=== PATIENT | female | born 1950 | race Two or more races ===

== ENCOUNTER 2016-11-19 09:57 | Day surgery (SDC) | payer MEDICARE, BC ==
[2016-11-17 15:11] VITALS: BMI 41.9
--- NOTE | 2016-11-19 07:50 | P.GSHP ---
History of Present Illness H&P Date: 11/19/16 CHIEF COMPLAINT: GERD HISTORY OF PRESENT ILLNESS: The patient is a 65-year-old female who presents reports gastroesophageal reflux disease. Upper endoscopy was offered for further evaluation and management. PAST MEDICAL HISTORY: Please see list. PAST SURGICAL HISTORY: Please see list. MEDICATIONS: Please see list. ALLERGIES: Please see list. SOCIAL HISTORY: No illicit drug use FAMILY HISTORY: No reports of Crohn disease or ulcerative colitis. REVIEW OF ORGAN SYSTEMS: CONSTITUTIONAL: No reports of fevers or chills. GI: Denies any blood in stools or constipation. PHYSICAL EXAM: VITAL SIGNS: Stable GENERAL: Well-developed and pleasant in no acute distress. HEENT: No scleral icterus. Extraocular movements grossly intact. Moist buccal mucosa. NECK: Supple without lymphadenopathy. CHEST: Unlabored respirations. Equal bilateral excursions. CARDIOVASCULAR: Regular rate and rhythm. Distal 2+ pulses. ABDOMEN: Soft, nondistended. MUSCULOSKELETAL: No clubbing, cyanosis, or edema. ASSESSMENT: 1. Gastroesophageal reflux disease PLAN: 1. Recommend proceeding with an upper endoscopy Past Medical History Past Medical History: GERD/Reflux, Hypertension, Sleep Apnea/CPAP/BIPAP Additional Past Medical History / Comment(s): hiatal hernia, diarrhea, arthritis knees, History of Any Multi-Drug Resistant Organisms: None Reported Past Surgical History: Bariatric Surgery, Cholecystectomy, Ear Surgery, Hernia Repair, Hysterectomy, Orthopedic Surgery, Tonsillectomy Additional Past Surgical History / Comment(s): ORIF left ankle, hernia x 4, oscar cataracts Past Anesthesia/Blood Transfusion Reactions: Previous Problems w/ Anesthesia Additional Past Anesthesia/Blood Transfusion Reaction / Comment(s): "Bad sore throats" -diff intubation Smoking Status: Never smoker - Past Family History Mother Family Medical History: No Reported History Medications and Allergies Home Medications Medication Instructions Recorded Confirmed Type Atenolol [Tenormin] 50 mg PO HS 11/17/16 11/17/16 History Chlorthalidone 25 mg PO DAILY 11/17/16 11/17/16 History Ranitidine HCl [Zantac] 150 mg PO DAILY 11/17/16 11/17/16 History Allergies Allergy/AdvReac Type Severity Reaction Status Date / Time blood pressure pill Allergy Rash/Hives Uncoded 11/17/16 15:01
[~2016-11-19 09:57] MED LIST: LACTATED RINGERS 1,000 ML IV SCH
[2016-11-19 10:06] VITALS: RESP 16; TEMP 97.5
[2016-11-19] MEDS ORDERED: LIDOCAINE 1% 20 ML VIAL (10MG/ML) FOR IV START INTRADERMA ONE (10:10)
[2016-11-19] MEDS ORDERED: PROPOFOL 10 MG/ML 20 ML VIAL IV ONE (10:14)
[2016-11-19] MEDS ORDERED: LIDOCAINE 1% INJ 10MG/ML (20 ML MDV) ONE (10:14)
--- NOTE | 2016-11-19 10:48 | P.PCN ---
Date of Procedure: 11/19/16 Description of Procedure: PREOPERATIVE DIAGNOSIS: Dysphagia. Regurgitation. Gastroesophageal reflux disease. POSTOPERATIVE DIAGNOSIS: Dysphagia. Regurgitation. Gastroesophageal reflux disease. Gastritis. Gastric stenosis from previous vertical banded gastroplasty. Complications from prior bariatric surgery. OPERATION: Esophagogastroduodenoscopy with balloon dilation, 18 mm. Esophagogastroduodenoscopy with biopsies along antrum. SURGEON: Sara Mello MD ANESTHESIA: MAC. INDICATIONS: The patient is a 65-year-old male who presents with a history of reflux disease including dysphagia has history of bariatric procedure. Benefits and risks of the procedure were described. Informed consent was obtained. DESCRIPTION: The patient was brought into the endoscopy suite and laid in the left lateral decubitus position. An Olympus gastroscope was passed along the posterior oropharynx down to the distal esophagus where the squamocolumnar junction was encountered at 38 cm from the incisors. A long gastric reservoir was identified whereby a separate orifice was found entering into the stomach. A gastric stenosis of 10 mm was identified as an adult gastroscope was used, 9.5 mm diameter. The stomach was entered and no bile reflux was found. Additional findings are listed below. Biopsies with cold forceps were obtained of the antrum. The first through third portion of the duodenum was examined. Retroflexion of the scope confirmed Hill grade 3 lower esophageal valve. The squamocolumnar junction demostrated acute LA grade A erosive esophagitis. Attention was then brought to the gastric stenosis. [employer] 18 mm balloon was used to dilate the distal esophagus for 2 minutes. The stomach was desufflated. The patient tolerated the procedure well. FINDINGS: Squamocolumnar junction 38 cm from the incisors. Diaphragmatic hiatus 43 cm. Gastric pouch of 7 cm. Bariatric procedure consistent with vertical banded gastroplasty with gastric stenosis. LA grade A erosive esophagitis. Superficial gastritis. Gastric stenosis of 10 mm. RECOMMENDATIONS: Recommend referral to the bariatric center for revision of her bariatric surgery. Recommend additional studies including upper GI and CT of the abdomen and pelvis. Plan - Discharge Summary New Discharge Prescriptions: No Action Atenolol [Tenormin] 50 mg PO HS Ranitidine HCl [Zantac] 150 mg PO DAILY Chlorthalidone 25 mg PO DAILY Discharge Medication List Atenolol [Tenormin] 50 mg PO HS 11/17/16 [History] Chlorthalidone 25 mg PO DAILY 11/17/16 [History] Ranitidine HCl [Zantac] 150 mg PO DAILY 11/17/16 [History]
[2016-11-19 11:08] VITALS: BP 141/84; PULSE 45
== END 2016-11-19 11:36 | disposition home or self-care (01) ==
LOC: ORWHC2ENDO 09:57
PROVIDERS: ATTEND Surgery Plastic and Reconstructive Surgery
DX: K29.30 Chronic superficial gastritis without bleeding (principal); K95.09 Other complications of gastric band procedure; K31.89 Other diseases of stomach and duodenum; K21.0 Gastro-esophageal reflux disease with esophagitis; E66.01 Morbid (severe) obesity due to excess calories; Z87.19 Personal history of other diseases of the digestive system; I10 Essential (primary) hypertension; G47.33 Obstructive sleep apnea (adult) (pediatric); M17.0 Bilateral primary osteoarthritis of knee; Z79.899 Other long term (current) drug therapy; Z88.8 Allergy status to other drugs, medicaments and biological substances
CPT/HCPCS: 88305; 88342; 43239; 43245; J2001; J2704; C1726

== ENCOUNTER → 2016-11-19 | Outpatient (CLI) | payer MEDICARE ==
[2016-11-19 12:48] LABS: Partial Thromboplastin Time 23.5 sec (22.0-30.0); Prothrombin Time 10.1 sec (9.0-12.0)
[2016-11-19 13:02] LABS: ALT 36 U/L (9-52); AST 20 U/L (14-36); Alkaline Phosphatase 95 U/L (38-126); Anion Gap 11 mmol/L; Blood Urea Nitrogen 17 mg/dL (7-17); Calcium 9.7 mg/dL (8.4-10.2); Carbon Dioxide 29 mmol/L (22-30); Chloride 101 mmol/L (98-107); Cholesterol 286 mg/dL (<200); Glucose 104 mg/dL (74-99); HDL Cholesterol 44 mg/dL (40-60); Iron 97 ug/dL (37-170); Magnesium 1.8 mg/dL (1.6-2.3); Non-African American GFR(MDRD) 50 (>60 ml/min/1.73 sqM); Phosphorous 4.2 mg/dL (2.5-4.5); Potassium 4.2 mmol/L (3.5-5.1); Sodium 141 mmol/L (137-145); Total Bilirubin 1.7 mg/dL (0.2-1.3); Total Protein 6.8 g/dL (6.3-8.2)
[2016-11-19 13:08] LABS: CH 31.6; CHCM 34.3; HCT 41.4 % (34.0-46.0); HDW 2.62; HGB 13.8 gm/dL (11.4-16.0); MCH 30.8 pg (25.0-35.0); MCHC 33.3 g/dL (31.0-37.0); MCV 92.4 fL (80.0-100.0); Mean Platelet Volume 8.8; RBC 4.48 m/uL (3.80-5.40); RDW 14.1 % (11.5-15.5); WBC 5.2 k/uL (3.8-10.6)
[2016-11-19 13:12] LABS: % Iron Saturation 35.9 % (20-50); Total Iron Binding Capacity 270 ug/dL (265-497)
[2016-11-19 13:50] LABS: Vitamin B12 253 pg/mL
[2016-11-19 20:54] LABS: Hemoglobin A1C 5.4 % (4.2-6.1)
[2016-11-21 19:03] LABS: Selenium 143 mcg/L (63-160)
== END | disposition home or self-care (01) ==
LOC: ORWHC2ENDO 09:43 → LABWHC1 09:43 → EDSTATUS 14:45
PROVIDERS: ATTEND Surgery Plastic and Reconstructive Surgery
DX: E66.01 Morbid (severe) obesity due to excess calories (principal); E89.1 Postprocedural hypoinsulinemia; D50.8 Other iron deficiency anemias; K90.89 Other intestinal malabsorption; E44.0 Moderate protein-calorie malnutrition; E55.9 Vitamin D deficiency, unspecified; K74.1 Hepatic sclerosis; N19 Unspecified kidney failure; K50.90 Crohn's disease, unspecified, without complications
CPT/HCPCS: 80053; 80061; 82306; 82525; 82607; 82728; 82746; 83036; 83540; 83550; 83735; 83970; 84100; 84134; 84255; 84425; 84443; 84590; 84630; 85027; 85610; 85730

== ENCOUNTER → 2016-11-19 | Outpatient (CLI) | payer MEDICARE, BC | LOC: LABWHC1 11:42 | PROVIDERS: ATTEND Surgery Plastic and Reconstructive Surgery | DX: Z53.9 Procedure and treatment not carried out, unspecified reason (principal) ==

== ENCOUNTER → 2017-03-04 | Day surgery (SDC) | payer MEDICARE, BC ==
[2017-02-23 16:56] VITALS: BMI 39.6
[~2017-03-04] MED LIST changes: +BUPIVACAINE-EPI 0.5%-1:200,000 10 ML VIAL SQ ONE; +GLYCOPYRROLATE 0.2 MG/ML 2 ML VIAL ONE; +HEPARIN SODIUM,PORCINE 5,000 UNIT/ML 1 ML VIAL SQ ONE; +HYDROcodone/APAP 5-325MG 1 EACH TAB PO ONE; +HYDROcodone/APAP 5-325MG 1 EACH TAB PO PRN; +HYDROmorphone (PF) 1 MG/ML ONE; +LACTATED RINGERS 1,000 ML IV ONE; +LIDOCAINE 1% INJ 10MG/ML (20 ML MDV) ONE; +MIDAZOLAM 2 MG/2 ML VIAL ONE; +NALOXONE 0.4 MG/ML 1 ML VIAL IV PRN; +NEOSTIGMINE 1 MG/ML 10 ML VIAL ONE; +ONDANSETRON 4 MG/2 ML VIAL IVP PRN; +PROPOFOL 10 MG/ML 20 ML VIAL IV ONE; +ROCURONIUM BROMIDE 10 MG/ML 10 ML VIAL IV ONE; +SUCCINYLCHOLINE CHLORIDE 100 MG/5 ML SYR IV ONE; +ceFAZolin IN SWFI 2 GM/20 ML SYRINGE IVP ONE; +fentaNYL (PF) 50 MCG/ML 2 ML AMP ONE
--- NOTE | 2017-03-04 08:27 | P.GSHP ---
History of Present Illness H&P Date: 03/04/17 CHIEF COMPLAINT: Incisional hernia. HISTORY OF PRESENT ILLNESS: Ira Jarrell is a 66 years-old female who has multiple complex recurrent abdominal wall hernias involving the epigastrium including the right lower quadrant. Separately, she has a pertinent history of vertical banded gastroplasty and has developed complications from her morbid obesity including hyperlipidemia, hypertension, as well as gastroesophageal reflux disease. She had a recent Bariatric work up, which demonstrated new onset hypothyroidism. Since treatment in the last 3 months, she has lost at least 10 pounds. She has received cardiology clearance. She now presents for follow up for surgical correction of her Bariatric surgery, including her hernias. PAST MEDICAL HISTORY: Please see list. PAST SURGICAL HISTORY: Please see list. MEDICATIONS: Please see list. ALLERGIES: Please see list. SOCIAL HISTORY: No illicit drug use FAMILY HISTORY: No reports of Crohn disease or ulcerative colitis. REVIEW OF ORGAN SYSTEMS: CONSTITUTIONAL: No reports of fevers or chills. GI: Denies any blood in stools or constipation. PHYSICAL EXAM: VITAL SIGNS: Stable GENERAL: Well-developed pleasant female in no acute distress. HEENT: No scleral icterus. Extraocular movements grossly intact. Moist buccal mucosa. NECK: Supple without lymphadenopathy. CHEST: Unlabored respirations. Equal bilateral excursions. CARDIOVASCULAR: Regular rate and rhythm. Distal 2+ pulses. MUSCULOSKELETAL: No clubbing, cyanosis, or edema. Abdomen: 20 x 15 cm epigastric hernia extended into the umbilicus. Separately, 6 cm ventral hernia of the right lower quadrant. STUDIES: Previous CT of the abdomen/pelvis was reviewed in detail and demonstrated multiple abdominal wall hernias. Upper endoscopy demonstrated a 5 cm diaphragmatic hiatal hernia including a 7 cm gastric pouch with gastric stenosis. ASSESSMENT: 1. Complications with vertical banded gastroplasty. 2. Gastrostenosis. 3. Multiple incisional recurrent hernias. 4. Ventral hernia. 5. Morbid obesity. 6. Osteoarthritis. 7. Hyperlipidemia. PLAN: 1. I have recommended referral to the Bariatric center, especially for corrective procedure from her vertical banded gastroplasty to a gastric bypass. 2. For her multiple abdominal wall hernias, I have described with her that she has multiple failed attempts with the mesh repair. As our main goal is to correct her Bariatric procedure, I have recommended a diagnostic laparoscopy with open ventral hernia repair without mesh as a temporizing measure. 3. In the future, she may actually benefit from abdominal wall reconstruction with panniculectomy at that time. 4. All of her questions were addressed. 5. Overnight hospitalization was also described. Past Medical History Past Medical History: GERD/Reflux, Hyperlipidemia, Hypertension, Osteoarthritis (OA), Sleep Apnea/CPAP/BIPAP Additional Past Medical History / Comment(s): ventral hernia x 3,hiatal hernia, diarrhea, arthritis knees,uses cpap,varicose veins,steroid injection knee Dec 2016, History of Any Multi-Drug Resistant Organisms: None Reported Past Surgical History: Bariatric Surgery, Cholecystectomy, Ear Surgery, Hernia Repair, Hysterectomy, Orthopedic Surgery, Tonsillectomy Additional Past Surgical History / Comment(s): Gastric Stapling,ORIF left ankle , hernia x 4, oscar cataracts, COLONOSCOPY, EGD Past Anesthesia/Blood Transfusion Reactions: Previous Problems w/ Anesthesia Additional Past Anesthesia/Blood Transfusion Reaction / Comment(s): "Bad sore throats after being intubated" -diff intubation-states "the anesthesiologist just uses a smaller tube".no hx blood transfusion. Smoking Status: Never smoker - Past Family History Mother Family Medical History: COPD Father Family Medical History: COPD Medications and Allergies Home Medications Medication Instructions Recorded Confirmed Type Atenolol [Tenormin] 25 mg PO HS 11/17/16 03/04/17 History Chlorthalidone 25 mg PO DAILY 11/17/16 03/04/17 History Ranitidine HCl [Zantac] 150 mg PO QAM 11/17/16 03/04/17 History Ascorbic Acid [Vitamin C] 500 mg PO DAILY 02/10/17 03/04/17 History Cholecalciferol [Vitamin D3] 5,000 unit PO BID 02/10/17 03/04/17 History Levothyroxine Sodium [Synthroid] 100 mcg PO QAM 02/10/17 03/04/17 History Pitavastatin Calcium [Livalo] 2 mg PO DAILY 02/23/17 03/04/17 History Allergies Allergy/AdvReac Type Severity Reaction Status Date / Time cholesterol medicine Allergy Rash/Hives,achiness,itching,eye Uncoded 03/04/17 07:44 swelling Surgical - Exam Vital Signs Temp Pulse Resp BP Pulse Ox 98.2 F 55 L 18 132/68 97 03/04/17 07:54 03/04/17 07:54 03/04/17 07:54 03/04/17 07:54 03/04/17 07:54
--- NOTE | 2017-03-04 11:12 | P.PCN ---
Date of Procedure: 03/04/17 Preoperative Diagnosis: Recurrent incarcerated incisional ventral hernia involving the transverse colon , morbid obesity, complications previous bariatric procedure Postoperative Diagnosis: Saline, incarcerated recurrence/cheese defect 10 x 14 cm involving the umbilicus Procedure(s) Performed: Diagnostic laparoscopy with lysis of adhesions, open repair of recurrent incarcerated incisional ventral hernia 10 x 14 cm epigastrium, excision of incarcerated greater omentum 10 cm Anesthesia: GETA, local Surgeon: Sara Mello Estimated Blood Loss (ml): 100 Pathology: other (Omentectomy) Condition: stable Disposition: floor Operative Findings: 1. Incarcerated epigastric recurrent incisional ventral hernia with suspicious cheese defect of 10 x 14 cm involving transverse mesocolon. 2. Partial omentectomy of greater than to 10 cm performed.
[2017-03-04 11:21] VITALS: TEMP 97.4
--- NOTE | 2017-03-04 11:45 | P.OP ---
Date of Procedure: 03/04/17 Description of Procedure: SURGEON: KING LIZ MD DISCHARGING MACHINE OPERATOR: JACK HILL PREOPERATIVE DIAGNOSES: 1. Recurrent incarcerated incisional ventral hernia, epigastrium involving transverse music colon. 2. Morbid obesity due to excess calories, BMI 39.7. 3. Complications from previous bariatric procedure, vertical banded gastroplasty. 4. Hypertensive heart disease. 5. Hypothyroidism. 6. Gastroesophageal reflux disease. 7. Hyperlipidemia. POSTOPERATIVE DIAGNOSES: 1. Recurrent incarcerated incisional ventral hernia, epigastrium involving transverse music colon, 10 X 14 cm, without gangrene. 2. Morbid obesity due to excess calories, BMI 39.7. 3. Complications from previous bariatric procedure, vertical banded gastroplasty. 4. Hypertensive heart disease. 5. Hypothyroidism. 6. Gastroesophageal reflux disease. 7. Hyperlipidemia. OPERATION: 1. Diagnostic laparoscopy lysis of adhesions over 30 minutes. 2. Open repair of recurrent incarcerated ventral incisional hernia, 10 x 14 cm , without mesh. 3. Open partial omentectomy, greater omentum. ANESTHESIA: General with anesthetic. ESTIMATED BLOOD LOSS: 100 mL SPECIMENS REMOVED: Partial omentectomy COMPLICATIONS: None. CONDITION: Stable. OPERATIVE FINDINGS: 1. Incarcerated incisional ventral hernia involving greater omentum and mid transverse mesocolon 10 x 13 cm with multiple micronesian cheese defects involving the umbilicus. INDICATIONS: The patient is a 66-year-old female who had crews Kevin band gastroplasty procedure over 23 years. She then developed multiple incisional ventral hernias of the epigastrium. The past 2 years, she has had 3 attempts at repair all with failure. Recent computed tomography scan imaging demonstrated incarceration of the transverse colon. Surgical intervention was advised. Benefits and risks of procedure however not limited to bleeding, infection, recurrence, chronic pain, injury to the bowel, need for further surgery were described at length. Informed consent was obtained. DESCRIPTION: The patient was brought into the operating room and laid in supine position. After general induction, a Brandt catheter was placed. The abdomen was then prepped and draped in standard sterile fashion using ChloraPrep. Ioban drape was placed. Preoperative antibiotics were administered. A timeout protocol was confirmed with the surgical team regarding the patient's name, procedure to be performed, including preoperative medications. Once the time-out protocol was confirmed with the surgical team, the patient was re-marked with indelible marker whereby the midline of the xiphoid to below the umbilicus was marked. The recurrent ventral hernia was palpated to be a defect at least over 10 cm of the epigastrium. At the left upper quadrant, a 0 5 mm laparoscopic trocar entry was performed. The abdomen was insufflated to 15 mmHg pressure which she tolerated well. Diagnostic laparoscopy demonstrated no injury to bowel, viscera, or mesentery. Along the lower abdomen, no evidence of a large abdominal wall hernia was identified. Intraoperative imaging was obtained. No moderate intra-abdominal adhesions were found with the exception of an incarcerated midline epigastric hernia involving the transverse music colon. Using a Sonicision, sharp dissection was performed in concert with blunt dissection and a fenestrated grasper. No injury had occurred to the bowel. Given the size of the hernia including moderate incarceration, a cutdown approach along the midline as proposed. A midline incision using #10 blade was then performed after anesthetizing the subcutaneous tissue and fascia along its midline and periphery. Carefully, the incision was taken to the subcutaneous tissue. The subcutaneous tissue was elevated and retracted laterally. Next, adhesions were taken down using a combination of blunt including sharp dissection with electro-Bovie cautery to take down the omentum from the abdominal wall. A large moderate Burkinan cheese defect also involving the umbilicus was identified. Incarcerated greater omentum was identified and resected using Sonicision. No injury to the transverse colon. The small bowel was not involved. The fascial edge was identified and found retracted. Size of defect of the fascia was 10 cm width by 14 cm in length. The fascial edge of the hernia was elevated. A subcutaneous flap was also developed for closure of the abdomen. No foreign body or mesh was identified. The peritoneal cavity and abdomen was closed using double-stranded #1 PDS. Hemostasis was once again checked with electro-Bovie cautery. The incision was closed in layers using 0 Vicryl for the deep subcutaneous tissue followed by running 4-0 Monocryl for the deep dermis. A final diagnostic laparoscopy was performed demonstrating no incarceration of her recent repair. Pneumoperitoneum was discontinued from the abdomen. All instruments were removed from the abdomen. The trocar sites were reapproximated using 4-0 Monocryl in a subcuticular fashion. At the end of the procedure, the needle, sponge and instrument count was verified correct. Antibiotic Optifoam sponge dressing was placed over the incision following Dermabond tape. The patient was then transferred to a hospital bed. An abdominal binder was placed and marked. The patient was taken to the postanesthesia care unit in stable condition, awake and extubated. Intraoperative findings were discussed with the patient's family who were pleased with the level of care.
[2017-03-04] MEDS: HYDROmorphone 1 MG/ML 1 ML SYRINGE IVP PRN ×2 (12:00→12:10)
[2017-03-04 13:47] VITALS: RESP 16
[2017-03-04 14:55] VITALS: BP 137/79; PULSE 72
== END | disposition home or self-care (01) ==
LOC: OR 07:12
PROVIDERS: ATTEND Surgery Plastic and Reconstructive Surgery
DX: K43.0 Incisional hernia with obstruction, without gangrene (principal); K66.0 Peritoneal adhesions (postprocedural) (postinfection); E66.01 Morbid (severe) obesity due to excess calories; K95.09 Other complications of gastric band procedure; Z68.39 Body mass index [BMI] 39.0-39.9, adult; E78.5 Hyperlipidemia, unspecified; K31.89 Other diseases of stomach and duodenum; M19.90 Unspecified osteoarthritis, unspecified site; I11.9 Hypertensive heart disease without heart failure; E03.9 Hypothyroidism, unspecified; G47.33 Obstructive sleep apnea (adult) (pediatric); Z99.89 Dependence on other enabling machines and devices; K21.9 Gastro-esophageal reflux disease without esophagitis; Z79.899 Other long term (current) drug therapy; Z88.8 Allergy status to other drugs, medicaments and biological substances
CPT/HCPCS: 86900; 86901; 86850; 88302; 49566; C1781; J2250; J1644; J2710; J0690; J2405; J2001; J3010; J1170; J0330; J2704

== ENCOUNTER → 2017-05-28 | Outpatient (CLI) | payer MEDICARE, BC ==
[2017-05-28 16:04] LABS: HCT 42.4 % (34.0-46.0); HGB 13.7 gm/dL (11.4-16.0); MCH 28.9 pg (25.0-35.0); MCHC 32.3 g/dL (31.0-37.0); MCV 89.6 fL (80.0-100.0); Mean Platelet Volume 8.6; Platelet Count 281 k/uL (150-450); RBC 4.73 m/uL (3.80-5.40); RDW 13.4 % (11.5-15.5); WBC 7.2 k/uL (3.8-10.6)
[2017-05-28 16:35] LABS: Albumin 4.2 g/dL (3.5-5.0); Calcium 10.4 mg/dL (8.4-10.2); Magnesium 1.7 mg/dL (1.6-2.3); Phosphorus 5.1 mg/dL (2.5-4.5); Potassium 4.2 mmol/L (3.5-5.1); Total Bilirubin 1.3 mg/dL (0.2-1.3); Total Protein 7.1 g/dL (6.3-8.2)
[2017-05-28 16:37] VITALS: BP 139/65; PULSE 62; TEMP 98.2; BMI 39.4
[2017-05-29 00:27] LABS: Parathyroid Hormone Intact 74.5 pg/mL (14.0-72.0)
[2017-05-29 00:41] LABS: Iron Saturation 27.48 (12.00-45.00)
[2017-05-29 00:51] LABS: Vitamin D 25 Hydroxy 49.8 ng/mL (30.0-100.0)
[2017-05-29 00:53] LABS: Folate, Serum >24.0 ng/mL
[2017-05-29 04:01] LABS: Hemoglobin A1C 5.5 % (4.0-6.0)
[2017-05-29 11:55] LABS: Zinc, Serum 76 ug/dL (60-130)
[2017-05-29 12:04] LABS: Vitamin B1 46 ug/L (38-122)
[2017-06-01 05:57] LABS: Vitamin A 57 ug/dL (38-106)
[2017-06-02 16:59] LABS: Selenium 134 mcg/L (63-160)
--- NOTE | 2017-07-03 15:39 | P.HPBAR ---
Bariatric H&P - History & Physicial H&P Date: 05/28/17 History & Physicial: Visit/CC: Patient initial contact: Initial weight: Initial weight in pounds: Height: Initial BMI: Last weight: Current weight: Current weight in pounds: Current BMI: [place] body weight (based on NIH guidelines): Excess body weight loss: The patient is a 66 year-old F who presents for Bariatric Assessment. DATE: 05/28/2017 CHIEF COMPLAINT: Complications gastric surgery HISTORY OF PRESENT ILLNESS: Ira Manuel is a 66 year old female with a past history of vertical banding gastroplasty in 1984. She reports not having any structured follow-up. Her highest weight was 277 pounds at that time. Her lowest weight was 200 pounds. Now she comes in with weight gain today at 237 pounds. She has developed complications as a result of her procedure including gastroesophageal reflux disease. She had developed multiple incisional hernias from her surgery. She had a recent ventral hernia repair and she's pending knee replacement secondary to her morbid obesity. As a result of her obesity, she developed hypertension, sleep apnea and osteoarthritis end stage. Her highest weight is 277 pounds with body mass index of 46.2. At her height of 5 foot 6, her ideal body weight is 149 pounds. Lifetime weight loss is 40 pounds. Percent excess weight loss is 31%. Her body mass index is 39.5. She comes in weighing 234 pounds. She is 88 pounds overweight. PAST MEDICAL HISTORY: 1. Morbid obesity, BMI 46.2, initial. 2. Osteoarthritis of the knees. 3. Gastroesophageal reflux disease 4. Hyperlipidemia 5. Hypothyroidism 6. Chronic pain 7. Hypertensive heart disease 8. Obstructive sleep apnea 9. Chronic diarrhea PAST SURGICAL HISTORY: 1. Vertical banded gastroplasty, 1984 2. Multiple incisional hernia repairs of the abdomen 3. Cholecystectomy 4. Hysterectomy 5. ORIF left ankle 6. Bilateral cataract extraction 7. Upper endoscopy 8. Colonoscopy 9. Ear surgery 10. Tonsillectomy 11. Troubles with anesthesia MEDICATIONS: 1. Zantac 2. Pravastatin 3. Synthroid 4. Campbell 5. Vitamin D 6. Chlorthalidone 7. Tenormin 8. Vitamin C ALLERGIES: Statin SOCIAL HISTORY: Lifelong nontobacco user. No current alcohol abuse. FAMILY HISTORY: Denies esophageal or stomach cancer. Has obesity in her family as well as diabetes. No Crohns or ulcerative colitis. No lupus. REVIEW OF SYSTEMS: CONSTITUTIONAL: Her highest weight is 277 pounds with body mass index of 46.2. At her height of 5 foot 6, her ideal body weight is 149 pounds. Lifetime weight loss is 40 pounds. Percent excess weight loss is 31%. Her body mass index is 39.5. She comes in weighing 234 pounds. She is 88 pounds overweight. HEENT: She wears glasses. No reports of dysphagia. No reports of troubles with hearing. ENDOCRINE: No diabetes type 2. Thyroid disorder. RESPIRATORY: Has moderate snoring. No asthma. Has sleep apnea. CARDIOVASCULAR: Has hypertensive disease. No recent chest pain or heart attack. GASTROINTESTINAL: Denies blood in stools. Has intermittent diarrhea. MUSCULOSKELETAL: Has osteoarthritis of the knees. No rheumatoid disease. NEURO: No recent stroke or seizure disorder. PSYCH: No depression. No suicidal ideation. HEMATOLOGIC: No recent DVTs or pulmonary emboli in herself or family. SKIN: No cancer. No rash. PHYSICAL EXAM: VITAL SIGNS: 5 feet 6 inches, 237 pounds, body mass index 39.5. Vital Signs Temp 98.2 F 05/28/17 16:31 Pulse 62 05/28/17 16:31 Resp BP 139/65 05/28/17 16:31 Pulse Ox GENERAL: Well-developed female in no acute distress. HEENT: No scleral icterus. Extraocular movements grossly intact. NECK: Supple without lymphadenopathy. CHEST: Nonlabored respirations with equal bilateral excursions. CARDIOVASCULAR: Tachycardic. 2+ pulses. ABDOMEN: Protuberant, soft, nontender, nondistended. No recurrent incisional hernia. MUSCULOSKELETAL: No clubbing or cyanosis or edema. NEURO: No focal or lateralizing signs. Cranial nerves 2-12 grossly within normal limits. PSYCH: Appropriate affect. Alert and oriented to person, place and time. SKIN: Well perfused. Good skin turgor. STUDIES: Previous upper endoscopy demonstrated gastric stenosis including severe gastroesophageal reflux disease EGD FINDINGS: Squamocolumnar junction 38 cm from the incisors. Diaphragmatic hiatus 43 cm. Gastric pouch of 7 cm. Bariatric procedure consistent with vertical banded gastroplasty with gastric stenosis. LA grade A erosive esophagitis. Superficial gastritis. Gastric stenosis of 10 mm. ASSESSMENT: 1. Morbid obesity due to excess caloric intake. 2. Body mass index 46.2 to 39.5 3. Osteoarthritis of the knees. 4. Gastroesophageal reflux disease 5. Hyperlipidemia 6. Hypothyroidism 7. Chronic pain 8. Hypertensive heart disease 9. Obstructive sleep apnea 10. Chronic diarrhea 11. Gastric stenosis complications from bariatric procedure PLAN: 1. Recommend bariatric metabolic panel. 2. She has complications from a bariatric procedure for which correction to gastric bypass was described. 3. Correction of the nutritional deficiencies. 4. She has completed cardiac risk assessment. 5. She is at increased risk for complications including bleeding, infection, gastric stricture, nutritional deficiencies were reviewed. 6. Inpatient hospitalization over 2 nights. 7. DVT prophylaxis. 8. Antibiotic prophylaxis. 9. Robotic-assisted approach advised. 10. Bariatric dietitian for gastrectomy diet. 11. Two-week high-protein low caloric diet advised. Past Medical History Past Medical History: GERD/Reflux, Hyperlipidemia, Hypertension, Osteoarthritis (OA), Sleep Apnea/CPAP/BIPAP Additional Past Medical History / Comment(s): ventral hernia x 3,hiatal hernia, diarrhea, arthritis knees,uses cpap,varicose veins,steroid injection knee Dec 2016, History of Any Multi-Drug Resistant Organisms: None Reported Past Surgical History: Bariatric Surgery, Cholecystectomy, Ear Surgery, Hernia Repair, Hysterectomy, Orthopedic Surgery, Tonsillectomy Additional Past Surgical History / Comment(s): Gastric Stapling,ORIF left ankle , hernia x 4, oscar cataracts, COLONOSCOPY, EGD Past Anesthesia/Blood Transfusion Reactions: Previous Problems w/ Anesthesia Additional Past Anesthesia/Blood Transfusion Reaction / Comm: "Bad sore throats after being intubated" -diff intubation-states "the anesthesiologist just uses a smaller tube".no hx blood transfusion. Smoking Status: Never smoker - Past Family History Mother Family Medical History: COPD Father Family Medical History: COPD Results - Labs 05/28/17 15:39 05/28/17 15:39 Bariatric Checklist Checklist: Plan: Checklist: EGD: 1. Hiatal hernia: 2. H. Pylori: HgbA1c: Vitamin D: Smoking: Never smoker Primary care physician referral: Psychiatry clearance: Cardiology clearance: Sleep study: Diet journal: VTE risk score: VTE risk level: Rehab needs at discharge:
== END | disposition home or self-care (01) ==
LOC: BARWHC3 15:34
PROVIDERS: ATTEND Surgery Plastic and Reconstructive Surgery
DX: K95.89 Other complications of other bariatric procedure (principal); E66.01 Morbid (severe) obesity due to excess calories; M17.0 Bilateral primary osteoarthritis of knee; K21.9 Gastro-esophageal reflux disease without esophagitis; E78.5 Hyperlipidemia, unspecified; E03.9 Hypothyroidism, unspecified; I11.9 Hypertensive heart disease without heart failure; I50.9 Heart failure, unspecified; K52.9 Noninfective gastroenteritis and colitis, unspecified; G89.29 Other chronic pain; G47.33 Obstructive sleep apnea (adult) (pediatric); Z68.39 Body mass index [BMI] 39.0-39.9, adult; Z79.899 Other long term (current) drug therapy; Z79.891 Long term (current) use of opiate analgesic; Z88.8 Allergy status to other drugs, medicaments and biological substances
CPT/HCPCS: 84255; 84134; 84425; 80061; 80053; 82607; 82728; 82525; 82746; 83540; 83550; 83735; 84100; 84443; 84590; 84630; 85027; 82306; 83970; 83036; 36415; G0463; 99211

== ENCOUNTER 2018-02-11 11:41 | Inpatient (IN) | payer MEDICARE, BC ==
[2018-02-09 11:14] VITALS: BMI 38.6
--- NOTE | 2018-02-11 07:26 | P.GSHP ---
History of Present Illness H&P Date: 02/11/18 CHIEF COMPLAINT: Incisional hernia. HISTORY OF PRESENT ILLNESS: The patient is a 67-year-old female who presents with a history of swelling along the epigastrium, recurrent hernia, incarcerated. Now she presents for further evaluation and management. PAST MEDICAL HISTORY: Please see list. PAST SURGICAL HISTORY: Please see list. MEDICATIONS: Please see list. ALLERGIES: Please see list. SOCIAL HISTORY: No illicit drug use FAMILY HISTORY: No reports of Crohn disease or ulcerative colitis. REVIEW OF ORGAN SYSTEMS: CONSTITUTIONAL: No reports of fevers or chills. GI: Denies any blood in stools or constipation. PHYSICAL EXAM: VITAL SIGNS: Stable GENERAL: Well-developed pleasant female in no acute distress. HEENT: No scleral icterus. Extraocular movements grossly intact. Moist buccal mucosa. NECK: Supple without lymphadenopathy. CHEST: Unlabored respirations. Equal bilateral excursions. CARDIOVASCULAR: Regular rate and rhythm. Distal 2+ pulses. ABDOMEN: Soft, nondistended. Large hernia along the epigastrium. Protuberant. MUSCULOSKELETAL: No clubbing, cyanosis, or edema. ASSESSMENT: 1. Incisional ventral hernia, recurrent PLAN: 1. Recommend proceeding with robotic ventral hernia repair with mesh. 2. Benefits and risks of surgical intervention was discussed including possibility of open technique. 3. DVT prophylaxis. 4. Antibiotic prophylaxis. Past Medical History Past Medical History: GERD/Reflux, Hyperlipidemia, Hypertension, Osteoarthritis (OA), Sleep Apnea/CPAP/BIPAP Additional Past Medical History / Comment(s): ventral hernia x 3,hiatal hernia, diarrhea, arthritis knees,uses cpap,varicose veins History of Any Multi-Drug Resistant Organisms: None Reported Past Surgical History: Bariatric Surgery, Cholecystectomy, Ear Surgery, Hernia Repair, Hysterectomy, Orthopedic Surgery, Tonsillectomy Additional Past Surgical History / Comment(s): Gastric Stapling,ORIF left ankle , hernia x 4, oscar cataracts, COLONOSCOPY, EGD Past Anesthesia/Blood Transfusion Reactions: Previous Problems w/ Anesthesia Additional Past Anesthesia/Blood Transfusion Reaction / Comment(s): "Bad sore throats after being intubated" -diff intubation-states "the anesthesiologist just uses a smaller tube".no hx blood transfusion. Smoking Status: Never smoker - Past Family History Mother Family Medical History: COPD Father Family Medical History: COPD Medications and Allergies Home Medications Medication Instructions Recorded Confirmed Type Chlorthalidone 25 mg PO DAILY 11/17/16 02/09/18 History Ranitidine HCl [Zantac] 150 mg PO QAM 11/17/16 02/09/18 History Ascorbic Acid [Vitamin C] 250 mg PO DAILY 02/10/17 02/09/18 History Cholecalciferol [Vitamin D3] 5,000 unit PO DAILY 02/10/17 02/09/18 History Levothyroxine Sodium [Synthroid] 88 mcg PO QAM 02/10/17 02/09/18 History Pitavastatin Calcium [Livalo] 2 mg PO DAILY 02/23/17 02/09/18 History Aspirin [Adult Low Dose Aspirin EC] 81 mg PO DAILY 02/09/18 02/09/18 History Calcium Carbonate/Vitamin D3 1 each PO DAILY 02/09/18 02/09/18 History [Caltrate 600 Plus D3 Tablet] Cholecalciferol (Vitamin D3) 2,000 unit PO DAILY 02/09/18 02/09/18 History [Vitamin D3] Multivitamins, Thera [Multivitamin 1 tab PO DAILY 02/09/18 02/09/18 History (formulary)] Allergies Allergy/AdvReac Type Severity Reaction Status Date / Time cholesterol medicine Allergy Rash/Hives,achiness,itching,eye Uncoded 02/09/18 11:00 swelling
[~2018-02-11 11:41] MED LIST changes: -BUPIVACAINE-EPI 0.5%-1:200,000 10 ML VIAL SQ ONE; +DEXAMETHASONE SOD PHOSPHATE 10 MG/ML 1 ML VIAL IV ONE; -GLYCOPYRROLATE 0.2 MG/ML 2 ML VIAL ONE; -HEPARIN SODIUM,PORCINE 5,000 UNIT/ML 1 ML VIAL SQ ONE; +HEPARIN SODIUM,PORCINE 5,000 UNIT/ML 1 ML VIAL SQ STA; -HYDROcodone/APAP 5-325MG 1 EACH TAB PO ONE; -HYDROcodone/APAP 5-325MG 1 EACH TAB PO PRN; -HYDROmorphone (PF) 1 MG/ML ONE; +HYDROmorphone 0.5 MG/0.5 ML SYRINGE IVP PRN; -LACTATED RINGERS 1,000 ML IV ONE; -LACTATED RINGERS 1,000 ML IV SCH; -LIDOCAINE 1% INJ 10MG/ML (20 ML MDV) ONE; -MIDAZOLAM 2 MG/2 ML VIAL ONE; +MORPHINE SULFATE 2 MG/ML SYRINGE IV PRN; -NALOXONE 0.4 MG/ML 1 ML VIAL IV PRN; -NEOSTIGMINE 1 MG/ML 10 ML VIAL ONE; +ONDANSETRON 4 MG/2 ML VIAL IVP ONE; -ONDANSETRON 4 MG/2 ML VIAL IVP PRN; -PROPOFOL 10 MG/ML 20 ML VIAL IV ONE; -ROCURONIUM BROMIDE 10 MG/ML 10 ML VIAL IV ONE; -SUCCINYLCHOLINE CHLORIDE 100 MG/5 ML SYR IV ONE; -ceFAZolin IN SWFI 2 GM/20 ML SYRINGE IVP ONE; -fentaNYL (PF) 50 MCG/ML 2 ML AMP ONE
[2018-02-11] MEDS: LACTATED RINGERS 1,000 ML IV SCH (13:20)
[2018-02-11] MEDS ORDERED: LIDOCAINE 1% 20 ML VIAL (10MG/ML) FOR IV START INTRADERMA ONE (13:21)
[2018-02-11] MEDS ORDERED: SUCCINYLCHOLINE CHLORIDE 100 MG/5 ML SYR IV ONE (14:03)
[2018-02-11] MEDS ORDERED: ROCURONIUM BROMIDE 10 MG/ML 10 ML VIAL IV ONE (14:03)
[2018-02-11] MEDS ORDERED: fentaNYL (PF) 50 MCG/ML 2 ML AMP ONE (14:03)
[2018-02-11] MEDS ORDERED: KETOROLAC 30 MG/ML 1 ML VIAL ONE (14:03)
[2018-02-11] MEDS ORDERED: NEOSTIGMINE 1 MG/ML 10 ML VIAL ONE (14:03)
[2018-02-11] MEDS ORDERED: PROPOFOL 10 MG/ML 20 ML VIAL IV ONE (14:03)
[2018-02-11] MEDS ORDERED: GLYCOPYRROLATE 0.2 MG/ML 2 ML VIAL ONE (14:03)
[2018-02-11] MEDS ORDERED: LIDOCAINE 1% INJ 10MG/ML (20 ML MDV) ONE (14:03)
[2018-02-11] MEDS ORDERED: MIDAZOLAM 2 MG/2 ML VIAL ONE (14:03)
[2018-02-11] MEDS: ceFAZolin IN SWFI 2 GM/20 ML SYRINGE IVP ONE ×2 (14:05→14:47)
--- NOTE | 2018-02-11 14:09 | P.PN ---
Progress Note - Text Progress Note Date: 02/11/18 To whom it may concern: Luis Carlos Jarrell presented 02/11/2018 to the hospital for his mother's surgery. 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 Regards, Sara Mello MD, FACS
[2018-02-11] MEDS ORDERED: BUPIVACAIN-EPI 0.25%-1:200,000 30 ML VIAL SQ ONE (14:46)
[2018-02-11] MEDS ORDERED: LACTATED RINGERS 1,000 ML IV ONE (15:56)
[2018-02-11] MEDS ORDERED: ONDANSETRON 4 MG/2 ML VIAL IVP PRN (16:49)
[2018-02-11] MEDS ORDERED: NALOXONE 0.4 MG/ML 1 ML VIAL IV PRN (16:49)
[2018-02-11] MEDS ORDERED: HYDROcodone/APAP 5-325MG 1 EACH TAB PO PRN (16:49)
[2018-02-11] MEDS ORDERED: METOCLOPRAMIDE 5 MG/ML 2 ML VIAL IVP PRN (16:49)
--- NOTE | 2018-02-11 17:08 | P.OP ---
Date of Procedure: 02/11/18 Description of Procedure: SURGEON: KING LIZ MD ETHANOL MAINTENANCE MECHANIC: 1. MAURICE NICHOLSON PREOPERATIVE DIAGNOSES: 1. Recurrent epigastric incisional hernia with incarceration 2. Morbid obesity does due to excess calories, BMI 38.6 3. Hypertensive heart disease with cardiomyopathy 4. Osteoarthritis bilateral knees 5. Gastroesophageal reflux disease 6. History of vertical banded gastroplasty complications 7. History of bariatric procedure POSTOPERATIVE DIAGNOSES: 1. Recurrent epigastric incisional hernia with incarceration and obstruction, 10 x 15 cm 2. Morbid obesity does due to excess calories, BMI 38.6 3. Hypertensive heart disease with cardiomyopathy 4. Osteoarthritis bilateral knees 5. Gastroesophageal reflux disease 6. History of vertical banded gastroplasty complications 7. History of bariatric procedure OPERATION: 1. Robotic-assisted da Dee Xi laparoscopic extensive lysis of adhesions over 1 hour 2. Robotic-assisted da Dee Xi laparoscopic repair of 10 cm x 15 cm initial incarcerated ventral hernia mesh, ventralight ST mesh 15 x 20 cm ANESTHESIA: General with local ESTIMATED BLOOD LOSS: 10 mL. SPECIMENS: None COMPLICATIONS: None. INDICATIONS: The patient is a 67-year-old female who presents recurrent incisional ventral hernia of the epigastrium from previous weight loss surgery over 20 years ago. She had an attempted open repair less than 12 months now with recurrence. Surgical intervention with laparoscopic versus robotic and open techniques were reviewed. Placement of mesh was also reviewed. Benefits and risks were thoroughly described. Informed consent was obtained. DESCRIPTION OF PROCEDURE: The patient was brought into the operating room and laid in supine position. After general induction, the abdomen had been prepped and draped in standard sterile fashion. Ioban draping was also placed. Prior to incision, a timeout protocol was confirmed with surgical team regarding the patient's name including procedures to be performed. The robot was primed prior to the procedure. A field block using local anesthetic was placed along hernia site including the proposed port sites. Initial incision was made with an #11 blade along the left upper quadrant. A 0 degree 5 mm laparoscopic trocar entry was performed and insufflated. Diagnostic laparoscopy demonstrated moderate peritoneal adhesions involving the upper midline and epigastrium with incarceration. An 8 mm port was placed along the left lower quadrant under direct localization. The 5-mm port was exchanged for an 8 mm robotic port. Placements of the ports were 15 cm from the target anatomy and approximately 10 cm apart. The da Dee Xi robot was previously primed, prepped and draped then docked along the left side of the patient. I then sat at the robot Da Dee Xi console where working arms of the robot including Bovie cautery connected to robotic scissors, vessel sealer, needle star route mail driver, and graspers placed by the assistant professor of music. Fascial defect of 10 x 15 cm of the epigastrium was identified after cleaning the peritoneal fat of the abdominal wall. Transverse mesocolon was found to be involved. Extensive lysis of adhesions over 1 hour was performed using vessel sealer including blunt dissection and Bovie cautery to address greater omentum to the anterior abdominal wall including transverse mesocolon to the abdominal wall. A 12 mm port was placed along the left upper quadrant for placement of the mesh and for sutures. The incarcerated contents was reduced as the peritoneal fat was cleaned from the abdominal wall. Next, hemostasis was checked with cautery. The hernia defect was oversewn using #1 Stratafix to address the [place] cheese defect with a pursestring stitch to reduce the size of a large 8 cm defect and running suture of the most superior transverse nigerian cheese defect of 4cm. Next, ventralight ST mesh 15 x 20 cm was placed with the rough side towards the abdominal wall and a Prolene stitch placed at the epicenter of the mesh to allow fixation during the case. 2-0 VLOC 12 inch sutures were used to fixate the mesh. A final endoscopic imaging was obtained. All instruments and pneumoperitoneum were evacuated from the abdominal cavity. The da Dee Xi robot was undocked from the patient. I re-scrubbed into the case for closure of incisions. The fascia of the 12-mm port was probed and less than 8-mm in size. The incisions were reapproximated using 4-0 Monocryl in an interrupted subcuticular fashion. Liquid glue was applied to the skin after cleansing the skin with normal saline and dilute hydrogen peroxide. An abdominal binder was placed. At the end of the procedure, needle, sponge, and instrument count had been verified correct by neurosurgical physician assistant. The patient was taken to the postanesthesia care unit in stable condition. Console time: 85 minutes FINDINGS: 1. Recurrent incarcerated epigastric 10 x 15 hernia with intermittent bowel obstruction involving transverse colon
[2018-02-11] MEDS: KETOROLAC 30 MG/ML 1 ML VIAL IVP SCH (17:58)
[2018-02-11 18:55] VITALS: TEMP 97.5
[2018-02-12] MEDS: LACTATED RINGERS 1,000 ML IV SCH (00:48)
[2018-02-12] MEDS: KETOROLAC 30 MG/ML 1 ML VIAL IVP SCH ×2 (01:13→05:53)
[2018-02-12] MEDS ORDERED: LEVOTHYROXINE 88 MCG TAB PO SCH (06:30)
[2018-02-12 08:32] VITALS: BP 137/71; PULSE 68; RESP 18
[2018-02-12] MEDS ORDERED: CHLORTHALIDONE 25 MG TAB PO SCH (09:00)
[2018-02-12] MEDS ORDERED: ENOXAPARIN 40 MG/0.4 ML SYRINGE SQ SCH (09:00)
[2018-02-12] MEDS ORDERED: FAMOTIDINE 20 MG TAB PO SCH (09:00)
== END 2018-02-12 12:58 | disposition home or self-care (01) | DRG 336 ==
LOC: OR 11:41 → 4SSUR 16:30
PROVIDERS: ADMIT Surgery Plastic and Reconstructive Surgery; ATTEND Surgery Plastic and Reconstructive Surgery
PROC: 0DNL0ZZ Release Transverse Colon, Open Approach (ICD-10-PCS; principal; 2018-02-11 13:40)
PROC: 0DNU0ZZ Release Omentum, Open Approach (ICD-10-PCS; principal; 2018-02-11 13:40)
PROC: 8E0W0CZ Robotic Assisted Procedure of Trunk Region, Open Approach (ICD-10-PCS; principal; 2018-02-11 13:40)
PROC: 0WUF0JZ Supplement Abdominal Wall with Synthetic Substitute, Open Approach (ICD-10-PCS; principal; 2018-02-11 13:40)
PROC: 3E0M05Z Introduction of Adhesion Barrier into Peritoneal Cavity, Open Approach (ICD-10-PCS; principal; 2018-02-11 13:40)
DX: K43.0 Incisional hernia with obstruction, without gangrene (principal); I43 Cardiomyopathy in diseases classified elsewhere; E66.01 Morbid (severe) obesity due to excess calories; E78.5 Hyperlipidemia, unspecified; G47.30 Sleep apnea, unspecified; Z99.89 Dependence on other enabling machines and devices; I11.9 Hypertensive heart disease without heart failure; K21.9 Gastro-esophageal reflux disease without esophagitis; M17.0 Bilateral primary osteoarthritis of knee; Z68.38 Body mass index [BMI] 38.0-38.9, adult; Z79.82 Long term (current) use of aspirin; Z79.899 Other long term (current) drug therapy; Z82.5 Family history of asthma and other chronic lower respiratory diseases; Z90.710 Acquired absence of both cervix and uterus; Z90.49 Acquired absence of other specified parts of digestive tract; Z98.84 Bariatric surgery status; Z98.42 Cataract extraction status, left eye; Z98.41 Cataract extraction status, right eye; Z79.890 Hormone replacement therapy; Z88.8 Allergy status to other drugs, medicaments and biological substances; K66.0 Peritoneal adhesions (postprocedural) (postinfection)